=== PATIENT | male | born 2000 | race American Indian/Alaskan Native ===

== ENCOUNTER 2020-07-27 20:21 | Emergency (ER) | payer MEDICAID ==
[2020-07-27 21:24] VITALS: BP 148/67
--- NOTE | 2020-07-27 22:11 | XRay Report ---
RIGHT ELBOW 3 VIEWS INDICATION / CLINICAL INFORMATION: right elbow pain. COMPARISON: None available. FINDINGS: No significant skeletal abnormality Signer Name: Fransico Maria MD FACLuis Signed: 07/27/2020 10:07 PM Workstation Name: [id number]
== END 2020-07-28 08:41 | disposition left against medical advice (07) ==
LOC: ED 20:21
DX: M79.601 Pain in right arm (principal); Z53.21 Procedure and treatment not carried out due to patient leaving prior to being seen by health care provider